=== PATIENT | female | born 1990 | race Caucasian/White ===

== ENCOUNTER 2018-06-08 21:12 | Inpatient (IN) | payer OTHER ==
[2018-06-08] MEDS ORDERED: IBUPROFEN 600 MG TAB PO (22:00)
[2018-06-08] MEDS ORDERED: MISOPROSTOL 200 MCG TAB PR (22:00)
[2018-06-08] MEDS ORDERED: METHYLERGONOVINE 0.2 MG INJ IM (22:00)
[2018-06-08] MEDS ORDERED: CARBOPROST 250 MCG INJ IM (22:00)
[2018-06-08] MEDS ORDERED: LIDOCAINE 1% (MPF) 30 ML INJ INJ (22:00)
[2018-06-08] MEDS ORDERED: OXYTOCIN 30 UNITS/LR 500 ML IV (22:00)
[2018-06-08] MEDS ORDERED: BUTORPHANOL 2 MG INJ IV (22:00)
[2018-06-08] MEDS: LACTATED RINGER'S 1,000 ML IV (22:06)
[2018-06-08 22:14] LABS: ADD MAN DIFF? NO
[2018-06-08 22:19] LABS: BASOPHILS % 0.2 % (0.0-2.0); EOSINOPHILS # 0.1 10^3/ul (0.0-0.5); EOSINOPHILS % 1.2 % (0.0-7.0); HEMATOCRIT 35.4 % (37.0-47.0); HEMOGLOBIN 11.9 g/dl (12.0-16.0); LYMPHOCYTES # 2.1 10^3/ul (0.8-2.9); LYMPHOCYTES % 22.2 % (15.0-51.0); MEAN CORPUSCULAR HEMOGLOBIN 28.7 pg (29.0-33.0); MEAN CORPUSCULAR HGB CONC 33.6 g/dl (32.0-37.0); MEAN CORPUSCULAR VOLUME 85.5 fl (82.0-101.0); MEAN PLATELET VOLUME 9.6 fl (7.4-10.4); MONOCYTE # 0.6 10^3/ul (0.3-0.9); MONOCYTES % 5.9 % (0.0-11.0); NEUTROPHIL # 6.6 10^3/ul (1.6-7.5); PLATELET COUNT 292 10^3/UL (140-415); RED BLOOD COUNT 4.14 10^6/ul (4.20-5.40); RED CELL DISTRIBUTION WIDTH 14.6 % (11.5-14.5)
[2018-06-08 22:19] LABS: WHITE BLOOD COUNT 9.5 10^3/ul (4.8-10.8)
[2018-06-08 22:38] LABS: INR 0.94; PROTIME 12.7 Sec (11.9-14.9)
[2018-06-08 22:39] LABS: PARTIAL THROMBOPLASTIN TIME 31.1 Sec (23.0-35.0)
[2018-06-08 23:06] LABS: HEPATITIS B SURFACE ANTIGEN NEGATIVE (NEGATIVE)
[2018-06-09] MEDS: OXYTOCIN 30 UNITS/LR 500 ML IV ×4 (02:08→20:02)
[2018-06-09] MEDS: MINERAL OIL LIGHT 10 ML VIAL TOP (03:30)
[2018-06-09] MEDS: LACTATED RINGER'S 1,000 ML IV ×4 (03:30→09:35)
[2018-06-09] MEDS ORDERED: FENTAnyl 2MCG/ML-ROPIV 0.2% 100 ML (08:55)
[2018-06-09] MEDS ORDERED: NALOXONE (0.4 MG/ML) INJ IV (10:00)
[2018-06-09] MEDS ORDERED: DIPHENHYDRAMINE 50 MG INJ IV (10:00)
[2018-06-09] MEDS: ONDANSETRON 4 MG INJ IV (11:30)
[2018-06-09] MEDS: FENTAnyl 2MCG/ML-ROPIV 0.2% 100 ML BAG EPI (11:34)
[2018-06-09 17:11] LABS: RAPID PLASMA REAGIN NONREACTIVE (NR)
[2018-06-09] MEDS: LACTATED RINGER'S 1,000 ML IV* (17:18)
[2018-06-09] MEDS ORDERED: SENNA/DOCUSATE NA (8.6MG/50MG) TAB PO (17:30)
[2018-06-09] MEDS ORDERED: DIPHENHYDRAMINE 25 MG CAP PO (17:30)
[2018-06-09] MEDS ORDERED: MAGNESIUM HYDROXIDE 30ML CUP PO (17:30)
[2018-06-09] MEDS ORDERED: MISOPROSTOL 200 MCG TAB PR (17:30)
[2018-06-09] MEDS ORDERED: METHYLERGONOVINE 0.2 MG INJ IM (17:30)
[2018-06-09] MEDS ORDERED: HYDROCODONE/APAP (5/325) TAB PO (17:30)
[2018-06-09] MEDS ORDERED: CARBOPROST 250 MCG INJ IM (17:30)
[2018-06-09] MEDS ORDERED: OXYTOCIN 30 UNITS/LR 500 ML IV (17:30)
[2018-06-09] MEDS ORDERED: ZOLPIDEM 5 MG TAB PO (17:30)
[2018-06-09] MEDS ORDERED: ACETAMINOPHEN 325 MG TAB PO (17:30)
[2018-06-09] MEDS: BENZOCAINE 20% 56 ML SPRAY TOP (17:54)
[2018-06-09] MEDS: LANOLIN HPA 1 PKT TOP (17:54)
[2018-06-09] MEDS: WITCH HAZEL/GLYCERIN PAD PR (17:54)
[2018-06-09] MEDS: IBUPROFEN 800 MG TAB PO ×2 (17:54→23:42)
[2018-06-10] MEDS: LACTATED RINGER'S 1,000 ML IV* (00:14)
[2018-06-10] MEDS: IBUPROFEN 800 MG TAB PO ×4 (05:50→23:54)
[2018-06-10 08:21] LABS: ADD MAN DIFF? NO
[2018-06-10 08:35] LABS: BASOPHILS % 0.3 % (0.0-2.0); EOSINOPHILS # 0.1 10^3/ul (0.0-0.5); HEMATOCRIT 30.6 % (37.0-47.0); HEMOGLOBIN 9.9 g/dl (12.0-16.0); LYMPHOCYTES # 2.4 10^3/ul (0.8-2.9); MEAN CORPUSCULAR HEMOGLOBIN 28.5 pg (29.0-33.0); MEAN CORPUSCULAR HGB CONC 32.4 g/dl (32.0-37.0); MEAN CORPUSCULAR VOLUME 88.2 fl (82.0-101.0); MEAN PLATELET VOLUME 9.7 fl (7.4-10.4); MONOCYTE # 0.6 10^3/ul (0.3-0.9); MONOCYTES % 5.7 % (0.0-11.0); NEUTROPHIL # 6.4 10^3/ul (1.6-7.5); NEUTROPHILS % 67.3 % (39.0-77.0); PLATELET COUNT 251 10^3/UL (140-415); RED BLOOD COUNT 3.47 10^6/ul (4.20-5.40); RED CELL DISTRIBUTION WIDTH 15.1 % (11.5-14.5)
[2018-06-10 08:35] LABS: WHITE BLOOD COUNT 9.6 10^3/ul (4.8-10.8)
[2018-06-10 10:59] LABS: RUBELLA ANTIBODY - IGG 7.62 index
[2018-06-11] MEDS: IBUPROFEN 800 MG TAB PO ×2 (05:54→11:54)
[2018-06-11] MEDS: DIPHTH/TET/ACEL PERTUSS (ADULT) 0.5 ML VIAL IM* (09:00)
[2018-06-11] MEDS: MEASLES,MUMPS,RUBELLA VACCINE INJ SC* (09:00)
[2018-06-11] MEDS: VARICELLA VACCINE LIVE/PF 1,350 UNIT/0.5 ML ML SC* (09:00)
[2018-06-12 11:41] LABS: RUBELLA ANTIBODY - IGM <20.00 AU/mL
== END 2018-06-11 13:20 | disposition home or self-care (01) | DRG 807 ==
LOC: L-D 21:12 → PP1 06-09 16:55
PROVIDERS: Obstetrics & Gynecology
PROC: 10E0XZZ Delivery of Products of Conception, External Approach (ICD-10-PCS; principal; 2018-06-09)
PROC: 3E033VJ Introduction of Other Hormone into Peripheral Vein, Percutaneous Approach (ICD-10-PCS; 2018-06-09)
DX: O48.0 Post-term pregnancy (principal); Z37.0 Single live birth; Z3A.40 40 weeks gestation of pregnancy
CPT/HCPCS: 62319; 76815; 85025; 85610; 85730; 86592; 86762; 86850; 86900; 86901; 87340